=== PATIENT | male | born 1980 | race Caucasian/White ===

== ENCOUNTER 2017-10-09 08:00 | Outpatient (RCR) | payer OTHER, SELFPAY ==
--- NOTE | 2017-09-09 14:00 | HP.PTEVAL_ITS ---
Patient's Visit Information ANDREW WISDOM is a 36 year old M referred to Physical Therapy by Baldo Alvarenga MD with a diagnosis of LOW BACK PAIN. Date of Evaluation: 09/09/17 Physical Therapist: Kylee Velazco - Visit Plan Frequency: 2-3x /Week Duration: 4-6 Weeks Plan: *US, E-STIM, MH, CP*. POSTURE CORRECTION/STRENGTHENING, INSTRUCTION IN APPROPRIATE BODY MECHANICS AND ACTIVITY MODIFICATIONS. DLS STARTING WITH A NEUTRAL SPINE PROGRESSING ROM TOLERATED. DONNA LE ROM, STRETCHING AND STRENGTHENING. HEP INSTRUCTION. CONSIDER VIDEO ANALYSIS. - Subjective Subjective: Diagnosis: LBP. Work/Leisure: [employer] OVER 40 HOURS A WEEK. USUALLY 10 HOURS A DAY - 50 HOURS A WEEK. OFF WORK FOR 2 WEEKS. RELEASED TO GO BACK TO WORK TOMORROW FULL DUTY BY DR. ALVARENGA. Disability: NO. Present symptoms: LEFT LOW BACK, LEFT POST THIGH TO THE KNEE. NO PAIN BELOW THE KNEE FOR 3 WEEKS NOW. PATIENT CURRENTLY DENIES LLE NUMBNESS OR TINGLING BUT DID IN HAVE IT IN THE BEGINNING. NO RIGHT LE SX'S. Present since: ABOUT 4 WEEKS. Pain Scale: WORST 3/10, LEAST 0/10. Currently: 10. Commenced as a result of: NO APPARENT REASON. STARTED WHILE SITTING IN [employer] TRUCK AT WORK. Symptoms at onset: LEFT LOW BACK AND HAMSTRING AREA PAIN, NUMBNESS AND TINGLING. Worse : SITTING. WORSE WITH ACTIVITY IF FLARED FROM SITTING BUT IF NOT FLARED UP FROM SITTING CAN DO ALMOST ANY ACTIVITY. Better: GET OUT OF SITTING. Disturbed sleep: NO. Previous history/Previous treatment: EPISODIC LOW BACK PAIN STARTING IN ABOUT 2009 TREATED WITH CHIROPRACTOR, STRETCHING AND MASSAGE NEEDED. NO BACK INJECTIONS OR SURGERY. HISTORY OF PAIN DOWN LEGS TOO BUT USUALLY THE LEFT. PATIENT REPORTS HIS BACK PAIN HAS ALWAYS COME FOR NO APPARENT REASON. NO PT IN THE PAST. PATIENT LATER RECALLS THAT ABOUT 2-3 YEARS AGO HE WAS AT WORK AND LIFTED SOMETHING AND HIS BACK CRACKED OR SOMETHING AND HE HAD PT AT [email or web address] FOR ABOUT A MONTH. HE ALSO REPORTS HE PULLED HIS LEFT THIGH MUSCLE WHEN HE TOOK OFF RUNNING PLAYING SOFTBALL AND HE HAD PT HERE A FEW YEARS AGO FOR IT. Coughing/sneezing/straining: NEGATIVE. Gait: NORMAL. Difficulty initiating urinatin: NO. Accidents: NO. Unexplained weight loss: NO. Imaging: RECENT LOW BACK X-RAYS IN [place] THAT DR. ALVARENGA TOLD HIM JUST SHOWED SOME ARTHRITIS. HE WAS ABLE TO PULL UP THE REPORT ON HIS PHONE AND IT STATED: MILD LEVOCURVATURE CENTERED AT L3. ALSO MINIMAL FACET ARTHROPATHY IS PRESENT. 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 SLIGHT DISC HEIGHT LOSS L4, L5 AND L5, S1. PMH: UNREMARKABLE. Recent major surgery: UNREMARKABLE. OTHER: PATIENT REPORTS THIS HAS BEEN THE WORST EPISODE OF LOW BACK PAIN HE HAS HAD. - Objective Sitting Posture: POOR. Standing Posture: FAIR. Lordosis: REDUCED. Lateral shift: NO. Relevant shift: N/A. Active Correction of posture: *BETTER. Other Observations: INDEP GAIT AND TRANSFERS WITHOUT GUARDING. Motor deficit: DONNA LE'S 5/5 EXCEPT HIPS GRADED 4/5. Sensory deficit: DONNA LE LIGHT TOUCH SENSATION IS INTACT AND SYMMETRICAL. ROM deficit: TIGHT DONNA HS'S AND GASTROC SOLEUS COMPLEX'S. Reflexes: DONNA QUADS 1/3 AND DONNA ACHILLES 2/3. Dural Signs: POSITIVE DONNA LE DURAL TESTS AND THE RIGHT LE IS ACTUALLY MORE POSITIVE THAN THE LEFT. Lumbar mvmt loss: flex - MIN. ext - MOD. R SG - MIN. L SG - MOD. PATIENT DENIES INCREASED LOW BACK PAIN WITH LUMBAR ROM TESTING ALL PLANES CURRENTLY. STATES HE IS STILL TIGHTER THAN NORMAL FOR HIM THOUGH. Core strength: POOR. Palpation: NO PALPABLE LUMBAR REGION TENDERNESS HOWEVER HIS PARASPINAL MUSCLES ARE EXTREMELY TIGHT AND GUARDED. - Goals Goal 1:: DECREASE C/O LBP AND LLE SX'S Goal Time Frame: 4-6 Weeks Goal 2:: IMPROVE PERSONAL CARE, LIFTING, SITTING, STANDING, SOCIAL LIFE, TRAVEL , AND EMPLOYMENT FUNCTION Goal Time Frame: 4-6 Weeks Goal 3:: INSTRUCT IN PROPHYLAXIS Goal Time Frame: 4-6 Weeks - Rehabilitation Potential Rehabilitation Potential: Good - Anticipated Interventions Patient/Client Instruction: Educate patient on: Condition, Plan of Care, Risk Factors, Benefits of Fitness Program For the Purpose of:: To improve self management Therapeutic Exercise to Include: Strength training, Body mechanics, Postural training, Dynamic Lumbar Stabilization For the Purpose of:: To improve ability of physical actions for home/community/ work/leisure TENS: Yes IF ES: Yes Cryotherapy (ice pack, ice massage): Yes Thermo therapy (hot pack): Yes Ultrasound (thermal/non thermal): Yes For the Purpose of:: To decrease pain, To decrease swelling/inflammation, To improve nutrient delivery to tissue Thank you for the opportunity to evaluate your patient. For Medicare and Medicare HMO plans, please review the plan of care and approve it. It will need to be FAXED BACK to us at [phone] for Medicare purposes. Please let me know if there are questions or concerns regarding this plan of care. Physician Signature: Date:
--- NOTE | 2017-10-09 12:45 | HP.PTDCSUM ---
HP - PT D/C Summary It has been my pleasure to treat ANDREW WISDOM under orders from Baldo Alvarenga MD, for the diagnosis of LOW BACK PAIN for a total of 7 visit(s). Discharge Date: Please see the following information for a summary of their discharge status. 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 HE REPORTS HE HAS BEEN DOING THE EX'S HE LEARNED HERE AND HE DOES NOT FEEL HE NEEDS ANY FURTHER PT AT THIS TIME. HE STATES THAT USING LUMBAR SUPPORT IN SITTING SEEMS HELPFUL. HE ALSO REPORTS THE EX'S FEEL GOOD - ESPECIALLY THE STRETCHING AND HE IS TRYING TO DO IT EVERYDAY. PATIENT REPORTS HE SITTING WITH SUPPORT IN HIS BACK SEEMED TO KEEP THE PAIN AWAY IN THE CAR ON VACATION BUT HE WASN'T COMPLETELY SURE HOW TO ANSWER THE SITTING QUESTIONS ON THE QUESTIONAIRE. HE REPORTS HE IS STILL TAKING MALOXACAM AND HE IS NOT SURE IF IT IS HELPING OR NOT BUT HE IS NOT HAVING PAIN. - Pain Back Pain Intensity (Out of 10): 0 - Objective Objective/Function: ALL GOALS MET. PATIENT IS INDEP WITH A HOME EX PROGRAM. ALL HOME EX'S WERE REVIEWED AND HE COMMUNICATES AND DEMONSTRATES A GOOD UNDERSTANDING OF PROPER POSTURE CONTROL AND BODY MECHANICS. INSTRUCTED PATIENT TO CONTINUE HOME EX PROGRAM TOLERATED AND FOLLOW UP WITH DR. ALVARENGA DIRECTED/NEEDED. UPON EXAM: Motor deficit: ODNNA LE'S ARE 5/5 WITH MMT'ING. Sensory deficit: DONNA LE LIGHT TOUCH SENSATION IS INTACT AND SYMMETRICAL. ROM deficit: CONTINUED TIGHTNESS OF DONNA HS'S AND GASTROC SOLEUS COMPLEX'S. Dural Signs: NEGATIVE DONNA LE DURAL SIGNS. Lumbar mvmt loss: flex - NIL. ext - MIN. R SG - NIL. L SG - NIL. PATIENT DENIES INCREASED LOW BACK PAIN WITH LUMBAR ROM TESTING ALL PLANES TODAY. Palpation: NO PALPABLE LUMBAR REGION TENDERNESS OR GUARDING TODAY. LUMBAR OSWESTRY HAS IMPROVED FROM 15 TO 4. - Goals Goal 1:: DECREASE C/O LBP AND LLE SX'S Goal Progress: Goal Met Goal 2:: IMPROVE PERSONAL CARE, LIFTING, SITTING, STANDING, SOCIAL LIFE, TRAVEL, AND EMPLOYMENT FUNCTION Goal Progress: Goal Met Goal 3:: INSTRUCT IN PROPHYLAXIS Goal Progress: Goal Met - Plan Plan: D/C TO HOME EX PROGRAM. PATIENT IS AGREEABLE TO DISCHARGE. - D/C Information If there are questions or concerns regarding this patient's physical therapy, please feel free to call me at [phone]. Thank you for the referral of this patient. Sincerely, Kylee Velazco
== END 2017-10-09 19:00 | disposition home or self-care (01) ==
LOC: PT 08:00
PROVIDERS: Family Provider Family Medicine; PCP Family Medicine; Visit Provider Family Medicine
DX: M54.5 Low back pain (principal)
CPT/HCPCS: 97110; 97161; 97164; 97530

== ENCOUNTER → 2020-06-19 11:38 | Outpatient (CLI) | payer OTHER, SELFPAY ==
[2014-08-14 10:30] VITALS: BMI 29.9
--- NOTE | 2020-06-19 11:50 | RAD_ITS ---
STUDY: X-RAY - RIGHT KNEE REASON FOR EXAM: Male, 39 years old. KNEE PAIN x6 WEEKS, LROM, NKI TECHNIQUE: 3 view(s) of the knee. COMPARISON: None. FINDINGS: Normal visualized distal femur. Normal visualized proximal tibia and fibula. Normal proximal tibiofibular articulation. 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 Normal medial femorotibial compartment. Normal lateral femorotibial compartment. Normal patellofemoral articulation. The soft tissue structures are unremarkable. RAD/Knee 3 Views IMPRESSION: Bipartite patella. Electronically Signed: Jamshid Lu MD at 12:14 EST , Service support ,
[2020-06-19 15:30] LABS: Anion Gap 8 (5-15); BUN 13 mg/dL (7-18); BUN/Creat Ratio 12.1 RATIO (10-20); Calcium,Total 9.5 mg/dL (8.5-10.1); Chloride 100 mmol/L (98-107); Cholesterol 261 mg/dL (200); Creatinine, Serum 1.07 mg/dL (0.70-1.30); EST Glomerular Filtration Rate 82 mL/min (>60); Est Glom Filt Rate - Afr Amer 99 mL/min (>60); Glucose 86 mg/dL (74-106); High Density Lipoprotein 62 mg/dL; Potassium 3.9 mmol/L (3.5-5.1); Sodium Level 136 mmol/L (136-145); Triglycerides 129 mg/dL; Very Low Density Lipoprotein 26 mg/dL (5-40)
== END ==
PROVIDERS: PCP Family Medicine; Referring Provider Family Medicine; Visit Provider Family Medicine
DX: Z00.00 Encounter for general adult medical examination without abnormal findings (principal); M25.561 Pain in right knee
CPT/HCPCS: 36415; 73562; 73564; 80048; 80061

== ENCOUNTER → 2020-07-07 14:45 | Outpatient (CLI) | payer OTHER, SELFPAY | PROVIDERS: PCP Family Medicine; Referring Provider Physician Assistant; Visit Provider Physician Assistant | DX: Z11.59 Encounter for screening for other viral diseases (principal) | CPT/HCPCS: 87635; C9803; U0003 ==

== ENCOUNTER → 2020-07-12 08:58 | Outpatient (CLI) | payer OTHER, SELFPAY ==
[2020-07-12 14:18] LABS: Probe Check PASS; Specimen Processing Control PASS
== END ==
PROVIDERS: PCP Family Medicine; Referring Provider Physician Assistant; Visit Provider Physician Assistant
DX: Z11.59 Encounter for screening for other viral diseases (principal)
CPT/HCPCS: 87635; C9803; U0002

== ENCOUNTER → 2020-09-25 11:33 | Outpatient (CLI) | payer OTHER, SELFPAY ==
[2014-08-14 10:30] VITALS: BMI 29.9
== END ==
PROVIDERS: PCP Family Medicine; Visit Provider Family Medicine
DX: Z20.822 Contact with and (suspected) exposure to COVID-19 (principal)
CPT/HCPCS: 87635; U0002

== ENCOUNTER → 2025-02-16 | Outpatient (CLI) | payer OTHER, SELFPAY ==
[2025-02-16 16:05] LABS: Anion Gap 13 (5-15); BUN 15 mg/dL (4-19); BUN/Creat Ratio 13.8 RATIO (10-20); Calcium,Total 9.5 mg/dL (7.6-11.0); Carbon Dioxide 23.3 mmol/L (21.0-32.0); Chloride 100 mmol/L (98-108); Cholesterol 219 mg/dL (<=200); Glucose 98 mg/dL (70-99); Low Density Lipoprotein Calc. 139 mg/dL; Potassium 4.5 mmol/L (3.3-5.1); Triglycerides 167 mg/dL; Very Low Density Lipoprotein 33 mg/dL (5-40); cholesterol:hdl ratio screen 4.70
== END | disposition home or self-care (01) ==
LOC: MFPLAB 10:55
PROVIDERS: PCP Family Medicine; Visit Provider Family Medicine
DX: I10 Essential (primary) hypertension (principal); E66.811 Obesity, class 1
CPT/HCPCS: 36415; 80048; 80061; 84403; 84443